=== PATIENT | female | born 1960 | race Caucasian/White ===

== ENCOUNTER 2023-03-08 09:28 | Outpatient (CLI) | payer OTHER, SELFPAY ==
--- NOTE | ~2023-03-08 | MR_ITS ---
MRI of the abdomen: Clinical indication: Renal lesion. Technique: Coronal SSFSE ARC, WATER:coronal LAVA-FLEX, Coronal 2D FIESTA FatSat, Axial SSFSE BH ARC, Axial 3D DualEcho BH, Axial SSFSE-IR, Axial DWI b=500, Axial 2D FIESTA FatSat, pre and dynamic postco ntrast Axial LAVA ARC, postcontrast Coronal In and Opposed phase LAVA FLEX. Following intravenous adm inistration of 14 cc MultiHance gadolinium, T1-weighted fat-sat imaging was performed in the axial an d coronal planes. Findings: Gallbladder is unremarkable. The common bile duct is normal in course and caliber. No filli ng defects are seen within the CBD. No evidence of intrahepatic biliary ductal dilatation. The pancre atic duct is normal in size. There are areas of signal drop off in the liver on out of phase images relative to in phase images, e specially in the left hepatic lobe. Spleen, pancreas, adrenal glands appear normal. There are multipl e bilateral parapelvic renal cysts, more numerous and larger in the left kidney, then the right. The aorta and the paraaortic regions appear normal. Impression: Bilateral parapelvic renal cysts, left worse than right. No suspicious enhancing renal lesion evident . Fatty infiltration of the liver, especially left hepatic lobe. Reviewed, dictated and finalized at [facility]. Impression: Bilateral parapelvic renal cysts, left worse than right. No suspicious enhancin g renal lesion evident. Fatty infiltration of the liver, especially left hepatic lobe.
== END 2023-03-08 09:29 | disposition home or self-care (01) ==
PROVIDERS: Visit Provider Nurse Practitioner Adult Health
DX: N28.89 Other specified disorders of kidney and ureter (principal); K76.0 Fatty (change of) liver, not elsewhere classified
CPT/HCPCS: 74183; A9577

== ENCOUNTER 2025-05-12 15:09 | Outpatient (CLI) | payer OTHER, SELFPAY ==
[2025-05-12 15:58] LABS: Add Urine Microscopic? YES; Appearance Urine Clear (Clear); Glucose Urine UA Negative (Negative); Leukocyte Esterase Ur Negative LEU/UL (Negative); Nitrate Urine Negative (Negative); Non Pathogenic Casts 0-2; Specific Grav Ur 1.030 (1.001-1.035)
[2025-05-12 16:07] LABS: Albumin Level 4.7 g/dL (3.5-5.1); Anion Gap 9 mmol/L (4-12); Blood Urea Nitrogen 16 mg/dL (7-17); Calcium 9.5 mg/dL (8.4-10.2); Carbon Dioxide 30 mmol/L (22-30); Chloride 98 mmol/L (98-107); Estimated Glomerular Filt Rate > 60; Glucose 97 mg/dL (65-110); Potassium 3.8 mmol/L (3.4-5.0); Sodium 137 mmol/L (137-145)
[2025-05-12 20:40] LABS: Total Protein Urine Random < 5 mg/dL; Ur Ttl Prot Creatinine Ratio < 0.02 mg/mg (0-0.20)
--- OUTSIDE RECORDS SUMMARY | 2025-05-12 20:51 | XMS_ITS | Encounter Summary ---
Author Organization [facility] Care Team Providers Care Talent Management Specialist Name Role Phone Mayco Solis Primary Care Provider [phone] Unknown, Notinfile Primary Care Provider Unavail able Jaki Rogers MD Primary Care Provider [phone] [facility] Primary Care Provider [phone] Jim Whitman Primary Care Provide r Encounter Details Date Type Department Care Team (Latest Contact Info) Description 10/08/2016 Orders Only [facility]INCONV Provider, MD Josué [address] [place] [address] Social History Tobacco Use Types Packs/Day Years Used Date Smoking Tobacco: Never Assessed Comments Unknown Sex and Gender Information Value Date Recorded Sex Assigned at Not on file Legal 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 Historical Provider Final Res ult * SCAN - LABS (10/15/2016 12:00 AM CDT) Narrative 10/15/2016 12:00 AM CDT Ordered by an unspecified provider. Historical Provider Final Res ult documented in this encounter Visit Diagnoses Not on filedocumented in this encounter Care Teams Talent Management Specialist Relationship Specialty Start Date End Date Mayco Solis PA [address] [place] [address] PCP - General 10/23/16 12/25/16 Unknown, Notinfile PCP - General 12/26/16 10/30/20 Jaki Rogers MD PCP - General Gastroenterology 10/31/20 08/12/22 [facility] [address] [place] [address] PCP - General 08/13/22 08/30/24 Jim Whitman PA [address] [place] [address] PCP - General Physician Sales Operations Analyst 08/31/24 documented as of this encounter
--- OUTSIDE RECORDS SUMMARY | 2025-05-12 20:51 | XMS_ITS | Patient Health Record ---
Author Organization [facility] Address [address] [place], [place] [id number] Care Team Providers Care Process Analyst Name Role Phone DURAN MALIK Unavailable [phone] Reason For Referral No Information Social History Social History Additional Details Category Social Info Options Details Migrated Social History Migrated Social History Smoking Status : Never used tobacco , History of tobacco use : Plan Of Treatment No Information Insurance Providers Payer Name Payer Address Payer Phone Subscriber Number Group Number Insured Name Patient Relationship to Insured Coverage Start Date Coverage End Date [facility] [address] [place] [address] [id number] BRANDON ZAMORA JR Spouse - patient is the spouse of the insured
--- OUTSIDE RECORDS SUMMARY | 2025-05-12 20:51 | XMS_ITS | Clinical Summary ---
Author Organization [facility] Address [address] [place] [address] Care Team Providers Care Medicaid Plan Compliance Director Name Role Phone [facility], [address] [place] [address] Primary Care Prov ider Source Comments [facility],non-owned Affiliates and Associated Physician Practices is amultiple site organization consisting of ambulatory clinics and hospital sitesin [place], [place], [place] and [place]. This disclosure is being madepursuant to the Care Everywhere program and may not contain all information available regarding this patient. Last updated 18.[facility] Allergies Active Allergy Reactions Criticality Noted Date Comments Latex Itching Low 07/25/2015 Penicillins Rash Medium 07/25/2015 Medications * Be aware that medications may not be up to date on this document. Alwaysverify current medications with the patient. lamoTRIgine (LAMICTAL) 100 MG tablet Take 1 (one) tablet by mouth DAILY 8 Active atorvastatin (LIPITOR) 40 MG tablet Take 1 (one) tablet by mouth at bedtime 8 Active CRANBERRY PO Take 500 mg by mouth once daily Active hydroCHLOROthiazi de (HYDRODIURIL) 25 MG tablet Take 1 (one) tablet by mouth Active Nutritional Supplements (ESTROVEN PO) Take 1 tablet by mouth once daily Active fluticasone propionate (FLONASE) 50 MCG/ACT nasal spray [place] 2 (two) sprays into each nostril once daily 8 Active AYR SALINE NASAL RINSE 1.57 G [place] 1 spray into each nostril as needed 8 Active hydrOXYzine hcl (ATARAX) 25 MG tabletIndications :Allergic contact dermatitis due to other agents Take 1-2 tablets nightly, as needed. 60 tablet 3 9 Active Vitamin D3, cholecalciferol, 50 MCG (2000 UT) tablet Take 1 (one) tablet by mouth once daily 2 Active colestipol (Colestid) 1 GM tablet Take 1 (one) tablet by mouth once daily 2 Active dicyclomine (Bentyl) 20 MG tablet Take 1 (one) tablet by mouth 2 times daily as needed 2 Active famotidine (Pepcid) 40 MG tablet Take 1 (one) tablet by mouth 2 times daily as needed 2 Active sulfamethoxazole- trimethoprim (Bactrim DS; Septra DS) 800-160 MG tablet Take 1 (one) tablet by mouth 2 times daily 2 Active venlafaxine XR 24hr (Effexor XR) 150 MG capsule Take 1 (one) capsule by mouth once daily 2 Active urea (Carmol;Vanamide) 40 % creamIndications: Other psoriasis,Keratod yesenia climactericum Apply to affected areas on feet twice daily. 30 day supply. 227 g 5 3 Active valACYclovir (Valtrex) 1 GM tabletIndications :Recurrent oral herpes simplex Take 2 tablets 12 hours apart at the first sign of oral herpes recurrence. 30 day supply. 16 tablet 3 Active lidocaine (Lidoderm) 5 % patch 4 Active methenamine hippurate (Hiprex) 1 GM tablet 4 Active clobetasol (Temovate) 0.05 % ointmentIndicatio ns:Other psoriasis,Keratod yesenia climactericum Apply to areas affected on trunk & extremities by psoriasis flares up to twice daily as needed. Avoid on face/armpits/gr oin. 30 day supply. 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 10/22/2022 Actinic skin damage 08/04/2020 Seborrheic keratoses 08/04/2020 Assessment & Plan (08/04/2020 11:41 AM EMPLOYMENT REPRESENTATIVE): 08/04/20 L heel, flaring, re-start urea cr BID, cont clob oint BID PRN Allergic contact dermatitis due to other agents 02/01/2020 Other psoriasis 02/01/2020 Assessment & Plan (08/04/2020 11:40 AM EMPLOYMENT REPRESENTATIVE): 08/04/20 well controlled, BSA < 1%, cont clob oint BID PRN Rhus dermatitis 02/01/2020 Candidal intertrigo 02/01/2020 History of basal cell carcinoma of skin 06/13/20 17 Melanocytic nevi of face 2016 Neoplasm of uncertain behavior of skin 6 Rash and other nonspecific skin eruption 016 Immunizations Immunization Administration Dates Next Due INFLUENZA VACCINE 04/16/2020 INFLUENZA VACCINE, QUADR. (F LUZONE; FLULAVAL; FLUARIX; AFLURIA QUADRIVALENT; 6MO+), 0.5 ML (IIV4) 04/27/2020,05/05/2019 Family History Medical History Relation Name Comments None Known Brother Hypertension Father None Known Maternal Aunt CVA Maternal Grandfather CVA Maternal Grandmother Diabetes Maternal Grandmother None Known Maternal Uncle Hypertension Mother None Known Other None Known Paternal Aunt None Known Paternal Grandfather None Known Paternal Grandmother None Known Paternal Uncle None Known Sister Asthma Neg Hx Cancer - Breast Neg Hx Cancer - Other Neg Hx Cancer - Skin, Melanoma Neg Hx Cancer - Skin, Non Melanoma Neg Hx Eczema Neg Hx Hemophilia Neg Hx Psoriasis Neg Hx Relation Name Status Comments Brother Father Maternal Aunt Maternal Grandfather Maternal Grandmother Maternal Uncle Mother Other Paternal Aunt Paternal Grandfather Paternal Grandmother Paternal Uncle Sister Social History Tobacco Use Types Packs/Day Years Used Date Smoking Tobacco: Never Smokeless Tobacco: Never Tobacco Cessation:Counseling Given: Not Answered Alcohol Use Standard Drinks/Week Comments No 0 (1 standard drink = 0.6 oz pur e alcohol) Comments Unknown Sex and Gender Information Value Date Recorded Sex Assigned at Not on file Legal Sex Female 5:20 PM EMPLOYMENT REPRESENTATIVE Gender Identity Not on file Sexual Orientation Not on file Last Filed Vital Signs Vital Sign Reading Time Taken Comments Blood Pressure 136/85 11/29/2015 9:18 AM CDT Pulse 63 11/29/2015 9:18 AM CDT Temperature - - Respiratory Rate - - Oxygen Saturation 98% 11/29/2015 9:18 AM CDT Inhaled Oxygen Concentration - - Weight 71.7 kg (158 lb) 11/29/2015 7:33 AM CDT Height 157.5 cm (5' 2) 11/29/2015 7:33 AM CDT Body Mass Index 28.9 11/29/2015 7:33 AM CDT Plan of Treatment Upcoming Encounters Date Type Department Care Team (Late st Contact Info) Description 07/12/2025 9:20 AM EMPLOYMENT REPRESENTATIVE Office Visit [facility] - General Dermatology [address], [place] [place] [address] Leanne Andrade MD [address] [facility] [address] [place] [address] Health Maintenance Due Date Last Done Comments COLOGUARD (AGES 45-75) - COL ON CA SCREENING 1960 COLON MONITORING 1960 COLONOSCOPY - COLON CA SCREENING 1960 CT COLONOGRAPHY - COLON CA SCREENING 1960 Colorectal Cancer Screening 1960 FIT - COLON CA SCREENING 1960 FLEX SIG - COLON CA SCREENING 1960 HIV SCREENING 1975 HEPATITIS C SCREENING 08/02/1978 DTAP/TDAP/TD VACCINES (1 - Tdap) 1979 PAP SMEAR 1981 PNEUMOCOCCAL VACCINE 50+ (1 of 1 - PCV) 2010 ZOSTER VACCINE (1 of 2) 2010 MAMMOGRAM 01/26/2022 01/27/2020 DEPRESSION SCREENING 07/07/2024 COVID-19 VACCINE (1 - 2023-2 5 season) 2025 INFLUENZA VACCINE (#1) 2025 0, 04/16/2020, 05/05/2019 Respiratory Syncytial Virus (RSV) Vaccine Pt: or over 60 yrs (1 - 1-dose 75+ series) 2035 HEPATITIS B VACCINE Aged Out No longe r eligible based on patient's age to complete this topic HIB VACCINE Aged Out No longer eligi ble based on patient's age to complete this topic HPV VACCINE Aged Out No longer eligi ble based on patient's age to complete this topic MENINGOCOCCAL (Group B) VACCINE SHARED DECISION-MAKING Aged Out No longer eligible based on patient's age to complete this topic MENINGOCOCCAL GROUPS A/C/Y/W VACCINE Aged Out No longer eligible b ased on patient's age to complete this topic Insurance [facility] Care Teams Medicaid Plan Compliance Director Relationship Specialty Start Date End [facility] [address] [facility], [place] [address] PCP - General 02/01/20
--- OUTSIDE RECORDS SUMMARY | 2025-05-12 20:51 | XMS_ITS | Encounter Summary ---
Author Organization [facility] Address [address] [place] [address] Care Team Providers Care Buttonhole Maker Hand Name Role Phone [address] Primary Care Prov ider Reason for Visit * Reason Onset Date Comments Refill Request 06/21/2022 Wants clobetasol (TEMOVATE) 0.05 % ointment refill. Encounter Details Date Type Department Care Team (Late st Contact Info) Description 06/21/2022 Telephone [facility] [address] [facility], [facility] [place] [phone] Leanne Andrade MD [facility] [place] [address] Refill Request (Wants clobetasol (TEMOVATE) 0.05 % ointment refill.) Social History Tobacco Use Types Packs/Day Years Used Date Smoking Tobacco: Never Smokeless Tobacco: Never Alcohol Use Standard Drinks/Week Comments No 0 (1 standard drink = 0.6 oz pur e alcohol) Comments Unknown Sex and Gender Information Value Date Recorded Sex Assigned at Not on file Legal Sex Female 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 Please send to: Vilma on file, thank you. PHONE EXCHANGE OPERATOR documented in this encounter Plan of Treatment Upcoming Encounters Date Type Department Care Team (Late st Contact Info) Description 07/12/2025 9:20 AM TELEPHONE EXCHANGE OPERATOR Office Visit [facility] - General Dermatology [address], [facility] [address] [place] [address] Leanne Andrade MD [address] [facility] [address] [place] [address] documented as of this encounter Visit Diagnoses Not on filedocumented in this encounter Care Teams Buttonhole Maker Hand Relationship Specialty Start Date End [facility] [address] [place] [address] PCP - General 02/01/20 documented as of this encounter
--- OUTSIDE RECORDS SUMMARY | 2025-05-12 20:51 | XMS_ITS | Patient Health Record ---
Author Organization [facility] Address [address] [place] [address] Care Team Providers Care Correctional Probation Officer Name Role Phone Chelsea Schmidt Unavailable [phone] Reason For Referral No Information Medications Medication SIG (Take, Route, Frequency, Duration) Notes Start Date End Date Status Urea 40 % Cream External Acti ve Clobetasol Propionate 0.05 % Ointment External Active Famotidine 40 MG Tablet Oral Active CHOLECALCIFEROL (VITAMIN D3) 50 MCG (2,000 UNIT) TABLET *Reorder from [employer]rr for eRx and Interaction Alerts* Active Fluconazole 150 MG Tablet Oral Active Premarin 0.625 MG/GM Cream Vaginal Active hydroCHLOROthiazide 25 MG Tablet Oral Active lamoTRIgine 100 MG Tablet Oral Active Fluticasone Propionate Diskus 50 MCG/ACT Aerosol Powder Breath Activated Inhalation *Reorder from Quizrr for eRx and Interaction Alerts* Active Cephalexin 500 MG Capsule Oral Active Naproxen 500 MG Tablet Oral Active Cefdinir 300 MG Capsule Oral Active Nitrofurantoin Monohyd Macro 100 MG Capsule Oral Active methylPREDNISolone 4 MG Tablet Therapy Pack Oral Active Dicyclomine HCl 20 MG Tablet Oral Active Sulfamethoxazole-Trimetho prim 800-160 MG Tablet Oral Activ e Venlafaxine HCl ER 150 MG Capsule Extended Release 24 Hour Oral Active Triamcinolone Acetonide 0.10% Ointment External Active valACYclovir HCl 1 GM Tablet Oral Active Loratadine 10 MG Tablet Oral Active Probiotic Formula 1 billion-250 cell-mg Capsule Oral *Pick strength-form from [place] [place] for eRX* Active Colestid 1 gram Tablet Oral *Pick strength-form from [place] for eRX* Active Atorvastatin Calcium 40 MG Tablet Oral Active Plan Of Treatment No Information Insurance Providers Payer Name Payer Address Payer Phone Subscriber Number Group Number Insured Name Patient Relationship to Insured Coverage Start Date Coverage End Date [facility] [address] [place] [address] [id number] BRANDON ZAMORA Spouse - patient is the spouse of the insured
--- OUTSIDE RECORDS SUMMARY | 2025-05-12 20:51 | XMS_ITS | Clinical Summary ---
Author Organization [facility] Address [address] [place] [address] Care Team Providers Care Superior Court Judge Name Role Phone Jim Whitman Primary Care Provide r Allergies Active Allergy Reactions Criticality Noted Date Comments Latex Rash Medium 09/20/2024 rash Penicillins Rash Medium 12/28/2010 Rash Pseudoephedrine Shortness of breath High 09/20/2024 Medications venlafaxine XR (EFFEXOR-XR) 150 mg 24 hr capsule Take 1 capsule (150 mg total) by mouth daily 01/11/2022 Active lamoTRIgine (LaMICtal) 100 mg tablet Take 1 tablet (100 mg total) by mouth daily 09/23/2017 Active famotidine (PEPCID) 40 mg tablet Take 1 tablet (40 mg total) by mouth 2 (two) times a day as needed 03/06/2022 Active hydroCHLOROthia zide (HYDRODIURIL) 25 mg tablet Take 1 tablet (25 mg total) by mouth Active colestipoL (COLESTID) 1 gram tablet Take 1 tablet (1 g total) by mouth daily 01/15/2022 Active dicyclomine (BENTYL) 20 mg tablet Take 1 tablet (20 mg total) by mouth 2 (two) times a day as needed 03/10/2022 Active atorvastatin (LIPITOR) 40 mg tablet Take 1 tablet (40 mg total) by mouth nightly 09/04/2017 Active cetirizine (ZyrTEC) 10 mg tablet 08/16/2024 Active cholecalciferol (VITAMIN D-3) 2000 unit tablet Take 1 tablet (2,000 Units total) by mouth daily 11/21/2021 Active potassium citrate ER (UROCIT-K) 10 mEq (1,080 mg) CR tablet 07/23/2024 Active aspirin 81 mg enteric coated tablet Take 1 tablet (81 mg total) by mouth daily Active vitamin E 200 unit capsule Take 1 capsule (200 Units total) by mouth daily Active ibuprofen 200 mg tab/cap Take by mouth every 6 (six) hours as needed for pain Active multivitamin with minerals capsule Take by mouth Active Active Problems Problem Noted Date Diagnosed Date Sensorineural hearing loss (SNHL) of both ears 0 09/20/2024 Tinnitus of both ears 09/20/2024 Epistaxis 09/20/2024 Surgical History Surgery Date Site/Laterality Comments APPENDECTOMY Medical History Medical History Date Comments Allergies Anxiety HTN (hypertension) History of kidney problems Recurrent sinus infections Frequent UTI Ear problems Tinnitus Nosebleed Family History Medical History Relation Name Comments Kidney disease Brother Family histor y of kidney disease - (Added by TW Conv) Parkinsons Mother Relation Name Status Comments Brother Mother Social History Tobacco Use Types Packs/Day Years Used Date Smoking Tobacco: Never Comments Unknown Sex and Gender Information Value Date Recorded Sex Assigned at Not on file 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 Gender Identity Not on file Sexual Orientation Not on file Last Filed Vital Signs Vital Sign Reading Time Taken Comments Blood Pressure 120/70 03/04/2017 4:15 PM CDT Pulse 78 03/04/2017 4:15 PM CDT Temperature - - Respiratory Rate 18 09/20/2024 10:55 AM CDT Oxygen Saturation - - Inhaled Oxygen Concentration - - Weight 74.4 kg (164 lb) 09/20/2024 10:55 AM CDT Height 157.5 cm (5' 2) 09/20/2024 10:55 AM CDT Body Mass Index 30 09/20/2024 10:55 AM CDT Plan of Treatment Health Maintenance Due Date Last Done Comments Cervical Cancer Screening 1960 Colon Cancer Screening-Colonoscopy 1960 Depression Screening 1960 Hepatitis C Screening 1960 Hepatitis B Screening 1978 Regular Well Visit/Exam 18-64 1978 Zoster Vaccine (1 of 2) 2010 Breast Cancer Screening-Mammogram 01/26/2021 01/27/2020, 08/10/2015 Covid-19 Vaccine ( season) 2025 04/24/2022, 05/24/2021, 11/13/2020, Additional history exists Influenza Vaccine (#1) 2025 2, 07/15/2021, 04/27/2020, Additional history exists DTaP/Tdap/Td Vaccine (2 - Td or Tdap) 11/07/2025 11/08/2015, 06/10/2011 Pneumococcal vaccine <65 Aged Out No longer eligible based on patient's age to complete this topic Procedures Procedure Name Priority Date/Time Associated Diagnosis Comments SCREENING MAMMOGRAM BILATERAL W YOVANI 01/27/2020 4:24 PM CDT from Last 3 Months or Most Recently Relevant to Health Maintenance Results * Screening Mammogram Bilateral W Yovani (01/27/2020 4:24 PM CDT) Anatomical Region Laterality Modality Breast Bilateral Mammography 01/27/2020 4:38 PM CDT Narrative 01/28/2020 8:17 AM CDT Patient Name: LENORA ZAMORA Ordering Dr: Fatuma San PA-C, D.O.B: 1960 Exam Date: 01/27/20 1624 Age: 59 Sex: Female MR#: [id number] Loc: RADIOLOGY REPORT Order #[id number] [facility] Juan A Bilat Screening 3D Signed - MG BILATERAL DIGITAL SCREENING MAMMOGRAM 3D/2D WITH MEDIOLATERAL OBLIQUE CRANIOCAUDAL: 01/27/2020 The study was acquired using full field digital technology and interpreted from soft copy. 2D digital mammographic views, as well as 3D digital tomosynthesis were performed in the CC and MLO projections. CLINICAL: Routine mammogram. Denies any problems today. No personal history of breast cancer. No family history of breast cancer. COMPARISONS: Comparison is made to exams dated: 08/10/2015 mammogram - [facility] and 06/22/2014 mammogram - [place]. BREAST TISSUE: There are scattered areas of fibroglandular density. FINDINGS: No significant masses, calcifications, or other findings are seen in either breast. There has been no significant interval change. IMPRESSION: BI-RAD 1 NEGATIVE There is no mammographic evidence of malignancy. A 1 year screening mammogram is recommended. The patient has been or will be contacted. We recommend annual screening mammography for women at average risk of breast cancer beginning at age 40, based on guidelines of the [employer] (ACR Practice Parameter for the Performance of Screening and Diagnostic Mammography) and [employer]. For women with an elevated risk of breast cancer, please refer to the ACR Practice Parameter for specific screening recommendations. The patient will be entered into a reminder system with a target due date of 1 year for her next screening exam. Electronically signed by: Eric Cheng M.D., md/candida:01/28/2020 08:17:52 Principal Account Clerk: Roseanne Meng RT(R)(Wing), [facility] letter sent: Normal Exam Reading location: BI-RADS: 1 Negative REPORT ELECTRONICALLY SIGNED IN OTHER VENDOR SYSTEM Resulting Agency Comment O Procedure Note Eric Cheng MD - 01/28/2020 Patient Name: LENORA ZAMORA Dr: Fatuma San PA-C, D.O.B: 1960 Exam Date: 01/27/20 162 Age: 59 Sex: Female MR#: [id number] Loc: RADIOLOGY REPORT Order #[id number] [facility] Juan A Bilat Screening 3D Signed - MG BILATERAL DIGITAL SCREENING MAMMOGRAM 3D/2D WITH MEDIOLATERAL OBLIQUE CRANIOCAUDAL: 01/27/2020 The study was acquired using full field digital technology andinterpreted from soft copy. 2D digital mammographic views, as well as 3D digital tomosynthesis were performed in the CC and MLO projections. CLINICAL: Routine mammogram. Denies any problems today. No personalhistory of breast cancer. No family history of breast cancer. COMPARISONS: Comparison is made to exams dated: 08/10/2015 mammogram [facility] and 06/22/2014 mammogram - [place]. BREAST TISSUE: There are scattered areas of fibroglandular density. FINDINGS: No significant masses, calcifications, or other findings areseen in either breast. There has been no significant interval change. IMPRESSION: BI-RAD 1 NEGATIVE There is no mammographic evidence of malignancy. A 1 year screeningmammogram is recommended. The patient has been or will be contacted. We recommend annual screening mammography for women at average risk ofbreast cancer beginning at age 40, based on guidelines of the [employer] (ACR Practice Parameter for the Performance of Screening and Diagnostic Mammography) and [employer]. For women with an elevated risk of breast cancer, pleaserefer to the ACR Practice Parameter for specific screening recommendations. The patient will be entered into a reminder system with a target due dateof 1 year for her next screening exam. Electronically signed by: Eric Cheng M.D., md/candida:01/28/2020 08:17:52 Principal Account Clerk: Roseanne MOSLEY(R)(Wing), [facility] letter sent: Normal Exam Reading location: BI-RADS: 1 Negative REPORT ELECTRONICALLY SIGNED IN OTHER VENDOR SYSTEM Fatuma Mcdonough IMG MAMMO PROCEDURES Final Re sult from Last 3 Months or Most Recently Relevant to Health Maintenance Insurance [employer] CLAIMS [employer] CLAIMS Care Teams Superior Court Judge Relationship Specialty Start Date End Date Jim Whitman PA [address] [place] [address] PCP - General Physician Telephone Technician 08/31/24
--- OUTSIDE RECORDS SUMMARY | 2025-05-12 20:51 | XMS_ITS | Clinical Summary ---
Author Organization [facility] Address [facility] [place] [address] Care Team Providers Care Horticultural Technical Officer Name Role Phone None, Provider MD Primary Care Provider Unavaila ble Allergies Active Allergy Reactions Criticality Noted Date Comments Penicillins Rash Low 07/12/2022 Medications venlafaxine (EFFEXOR) 25 MG tablet Take 25 mg by mouth 2 (two) times daily with meals. Active hydroCHLOROthia zide (MICROZIDE) 12.5 MG tablet Take 12.5 mg by mouth every morning. Active atorvastatin (LIPITOR) 10 MG tablet Take 10 mg by mouth nightly at bedtime. 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 Pulse 97 07/12/2022 4:17 PM LEAD RAMP SERVICE MAN Temperature 36.4 C (97.6 F) 07/12/2022 4:17 PM LEAD RAMP SERVICE MAN Respiratory Rate 18 07/12/2022 4:17 PM LEAD RAMP SERVICE MAN Oxygen Saturation 96% 07/12/2022 4:17 PM LEAD RAMP SERVICE MAN Inhaled Oxygen Concentration - - Weight 73.9 kg (163 lb) 07/12/2022 4:17 PM LEAD RAMP SERVICE MAN Height 157.5 cm (5' 2) 07/12/2022 4:17 PM LEAD RAMP SERVICE MAN Body Mass Index 29.81 07/12/2022 4:17 PM LEAD RAMP SERVICE MAN Plan of Treatment Health Maintenance Due Date Last Done Comments Cervical Cancer Screening Pa p Smear (Age 30 to 64) Every 3 Years 1960 Colorectal Cancer Screening Colonoscopy (10 Years) 1960 Annual Physical 1963 Hepatitis C 1978 DTaP, Tdap and Td Vaccines ( 1 - Tdap) 1979 Cervical Cancer Screening Pa p with HPV Testing (Age 30 to 64) Every 5 Years 1990 Cervical Cancer Screening wi th HPV 1990 Mammogram Screening 2000 Pneumococcal Vaccine: 50+ Years (1 of 1 - PCV) 2010 Zoster Vaccines (1 of 2) 2010 COVID-19 Vaccine (3 - 2024-2 6 season) 2025 11/13/2020, 10/20/2020 Influenza Adult (#1) 2025 04/27/2020, 04/16/2020, 05/05/2019 RSV Immunization or 60+ Years (1 - 1-dose 75+ series) 2035 Hepatitis A Vaccines Aged Out No long er eligible based on patient's age to complete this topic Meningococcal B Vaccine Aged Out No l onger eligible based on patient's age to complete this topic Meningococcal Vaccine Aged Out No kate sussy eligible based on patient's age to complete this topic RSV Immunizations Under 20 Months Aged Out No longer eligible b ased on patient's age to complete this topic Insurance [employer] Member Subscriber Plan / Payer (Ef fective 2016-Present) Name:Yohana Weinstein Relation to Subscriber:Self Name:Yohana Weinstein Payer ID:[id number] (NAIC) Group ID:Not on file Type:Not on file Address: [facility] [address] [id number] Care Teams Horticultural Technical Officer Relationship Specialty Start Date End Date None, Provider, PCP - General 04/19/21
--- OUTSIDE RECORDS SUMMARY | 2025-05-12 20:51 | XMS_ITS | Encounter Summary ---
Author Organization [facility] Address [address] [facility] [place] [address] Care Team Providers Care Home Health Nurse Name Role Phone [address] [facility] Primary Care Prov ider Reason for Visit * Reason Onset Date Comments SKIN PROBLEM 01/24/2025 Encounter Details Date Type Department Care Team (Late st Contact Info) Description 01/24/2025 Telephone [facility] - Centralized Scheduling [address] [place] [id number] Leanne Andrade MD [facility] [place] [address] SKIN PROBLEM Social History Tobacco Use Types Packs/Day Years Used Date Smoking Tobacco: Never Smokeless Tobacco: Never Alcohol Use Standard Drinks/Week Comments No 0 (1 standard drink = 0.6 oz pur e alcohol) Comments Unknown Sex and Gender Information Value Date Recorded Sex Assigned at Not on file Legal Sex Female 5:20 PM CHIROPRACTIC PHYSICIAN Gender Identity Not on file Sexual Orientation Not on file documented as of this encounter Miscellaneous Notes * Telephone Encounter - Lance Benson MD - 01/24/2025 4:16 PM CDT Refills for clobetasol sent to [facility] Thank you (Raymond pt) * Telephone Encounter - Elsie Mitchell - 01/24/2025 2:42 PM CDT Current Provider: Raymond Reason for Call: pt had nails done and she has really broken out near her nail beds and toes. She is in a lot of pain. She is now scheduled for next available which is not until July. She was prescribed clobetasol (Temovate) 0.05 % ointment and is out. Wondering if we could refill to get some relief. Patient Call Back Number: [phone] documented in this encounter Plan of Treatment Upcoming Encounters Date Type Department Care Team (Late st Contact Info) Description 07/12/2025 9:20 AM CHIROPRACTIC PHYSICIAN Office Visit [facility] - General Dermatology [address] [place] [address] Leanne Andrade MD [address] [facility] [address] [place] [address] documented as of this encounter Visit Diagnoses Not on filedocumented in this encounter Care Teams Home Health Nurse Relationship Specialty Start Date End Date [facility] [address] [place] [address] PCP - General 02/01/20 documented as of this encounter
== END 2025-05-12 15:10 | disposition home or self-care (01) ==
LOC: ANHLAB 15:12
PROVIDERS: Visit Provider Internal Medicine Nephrology
DX: R39.89 Other symptoms and signs involving the genitourinary system (principal); N29 Other disorders of kidney and ureter in diseases classified elsewhere; E83.59 Other disorders of calcium metabolism
CPT/HCPCS: 36415; 80069; 81001; 82570; 84156